=== PATIENT | male | born 1975 | race African-American/Black ===

== ENCOUNTER 2023-05-21 15:59 | Outpatient (AMB) | payer OTHER, SELFPAY ==
[2023-05-21 16:00] VITALS: BP 126/92; PULSE 97; O2SAT 96; BMI 24.4
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
== END 2023-05-21 16:36 | disposition home or self-care (01) ==
PROVIDERS: PCP Nurse Practitioner Family; Visit Provider Nurse Practitioner Family
DX: M25.551 Pain in right hip (principal); M25.552 Pain in left hip; Z76.89 Persons encountering health services in other specified circumstances; R68.89 Other general symptoms and signs; F41.9 Anxiety disorder, unspecified; F32.89 Other specified depressive episodes
CPT/HCPCS: 96127; 99203